=== PATIENT | female | born 1965 | race Two or more races ===

== ENCOUNTER 2018-09-23 07:30 | Inpatient (IN) | payer OTHER ==
[~2018-09-23] VITALS: Ht 157.5 cm; Wt 75.3 kg
[2018-09-23] MEDS ORDERED: VASOTEC10 MG PO (08:26)
[2018-09-23] MEDS ORDERED: PRILOSEC10 MG PO (08:26)
[2018-09-23] MEDS ORDERED: ZANTAC150 M3 PO (08:26)
[2018-09-23] MEDS ORDERED: IRON236 MG PO (08:27)
[2018-09-28] MEDS ORDERED: CODE1TAB37 PO (08:13)
[2018-09-28] MEDS ORDERED: NAPR500T14 PO (08:14)
== END 2018-09-28 10:39 | disposition home or self-care (01) | DRG 742 ==
LOC: OB/GYN 09-25 06:16 → O/R 09-25 06:16 → SURH 09-25 07:30 → OB/GYN 09-25 15:00 → SURH 09-25 20:00 → OB/GYN 09-28 10:39
PROVIDERS: ADMIT Obstetrics & Gynecology
PROC: 0TJB8ZZ Inspection of Bladder, Via Natural or Artificial Opening Endoscopic (ICD-10-PCS; 2018-09-25)
PROC: 30233N1 Transfusion of Nonautologous Red Blood Cells into Peripheral Vein, Percutaneous Approach (ICD-10-PCS; 2018-09-25)
PROC: 0UT90ZZ Resection of Uterus, Open Approach (ICD-10-PCS; principal; 2018-09-25 20:00)
PROC: 0UT50ZZ Resection of Right Fallopian Tube, Open Approach (ICD-10-PCS; 2018-09-25 20:00)
DX: D25.1 Intramural leiomyoma of uterus (principal); D62 Acute posthemorrhagic anemia; N92.1 Excessive and frequent menstruation with irregular cycle; N73.6 Female pelvic peritoneal adhesions (postinfective); N80.0 Endometriosis of uterus; N84.0 Polyp of corpus uteri